=== PATIENT | female | born 1990 | race Caucasian/White ===

== ENCOUNTER 2016-09-29 03:34 | Inpatient (IN) | payer BC ==
[2016-09-29] MEDS ORDERED: Misoprostol 25 MCG (1/4 of 100 MCG) Tab ONE (08:19)
[2016-09-29] MEDS ORDERED: Sodium Chloride 0.9% 10 ML Syringe FLUSH PRN (08:28)
[2016-09-29] MEDS: Lactated Ringers 1,000 ML IV SCH ×3 (12:15→21:16)
[2016-09-29] MEDS: Oxytocin/Lactated Ringers 10 UNIT/1,000 ML BAG IV SCH (12:20)
--- NOTE | 2016-09-29 14:21 | PCM.PREANE ---
Preanesthetic Assessment - Anesthesia/Transfusion/Family Hx Anesthesia History: No Prior Anesthesia Family History of Anesthesia Reaction: No Transfusion History: No Prior Transfusion(s) - Review of Systems General: No Symptoms Pulmonary: No Symptoms Cardiovascular: No Symptoms Gastrointestinal: No Symptoms Neurological: No Symptoms Other: Reports: None - Physical Assessment O2 Sat by Pulse Oximetry: 98 Respiratory Rate: 15 Vital Signs: Last Vital Signs Temp 36.7 C 09/29/16 07:36 Pulse 113 H 09/29/16 07:36 Resp 15 09/29/16 07:36 BP 128/87 09/29/16 07:36 Pulse Ox 98 09/29/16 07:36 Height: 1.6 m Weight: 66.587 kg ASA Class: 2 Mental Status: Alert & Oriented x3 Dentition: Reports: Normal Dentition Thyro-Mental Finger Breadths: 2 Mouth Opening Finger Breadths: 3 ROM/Head Extension: Full Lungs: Clear to Auscultation, Normal Respiratory Effort Cardiovascular: Regular Rate, Regular Rhythm - Lab Values: Laboratory Last Values WBC 7.78 K/mm3 (3.98-10.04) 09/29/16 07:20 RBC 3.70 M/mm3 (3.98-5.22) L 09/29/16 07:20 Hgb 11.8 gm/L (11.2-15.7) 09/29/16 07:20 Hct 35.2 % (34.1-44.9) 09/29/16 07:20 MCV 95.1 fl (79.4-94.8) H 09/29/16 07:20 MCH 31.9 pg (25.6-32.2) 09/29/16 07:20 MCHC 33.5 g/dl (32.2-35.5) 09/29/16 07:20 RDW Std Deviation 44.5 fL (36.4-46.3) 09/29/16 07:20 Plt Count 183 K/mm3 (182-369) 09/29/16 07:20 MPV 11.5 fl (9.4-12.3) 09/29/16 07:20 Neut % (Auto) 72.9 % (34.0-71.1) H 09/29/16 07:20 Lymph % (Auto) 18.9 % (19.3-51.7) L 09/29/16 07:20 [place] % (Auto) 6.9 % (4.7-12.5) 09/29/16 07:20 Eos % (Auto) 0.9 (0.7-5.8) 09/29/16 07:20 Baso % (Auto) 0.1 % (0.1-1.2) 09/29/16 07:20 Neut # (Auto) 5.67 K/mm3 (1.56-6.13) 09/29/16 07:20 Lymph # (Auto) 1.47 K/mm3 (1.18-3.74) 09/29/16 07:20 [place] # (Auto) 0.54 K/mm3 (0.24-0.36) H 09/29/16 07:20 Eos # (Auto) 0.07 K/mm3 (0.04-0.36) 09/29/16 07:20 Baso # (Auto) 0.01 K/mm3 (0.01-0.08) 09/29/16 07:20 Blood Type O POSITIVE 09/29/16 07:20 Gel Antibody Screen Negative 09/29/16 07:20 - Allergies Allergies/Adverse Reactions: Allergies Allergy/AdvReac Type Severity Reaction Status Date / Time azithromycin [From Zithromax] AdvReac Nausea Verified 09/29/16 08:46 - Acknowledgements Anesthesia Type Planned: Epidural Pt an Appropriate Candidate for the Planned Anesthesia: Yes Alternatives and Risks of Anesthesia Discussed w Pt/Guardian: Yes Pt/Guardian Understands and Agrees with Anesthesia Plan: Yes PreAnesthesia Questionnaire - Past Health History Medical/Surgical History: Denies Medical/Surgical History - SUBSTANCE USE Smoking Status *Q: Never Smoker Recreational Drug Use History: No - HOME MEDS Home Medications: Home Meds Vit W-Ca,Fe,FA(<1 mg) [ Vitamins] 1 tab PO DAILY 09/29/16 [ History] - CURRENT (IN HOUSE) MEDS Current Meds: Current Medications Lactated Ringer's (Ringers, Lactated) 1,000 mls @ 100 mls/hr IV ASDIRECTED BEHZAD Last Admin: 09/29/16 12:15 Dose: 100 mls/hr Oxytocin/Lactated Ringer's (Pitocin In Lr 10 Units/1,000 Ml) 10 unit in 1,000 mls @ 12 mls/hr IV TITRATE BEHZAD; 2 MUNITS/MIN PRN Reason: Protocol Last Admin: 09/29/16 12:20 Dose: 2 munits/min, 12 mls/hr Sodium Chloride (Saline Flush) 10 ml FLUSH ASDIRECTED PRN PRN Reason: Keep Vein Open Discontinued Medications Misoprostol (Cytotec) Confirm Administered Dose 25 mcg .ROUTE .[facility]-MED ONE Stop: 09/29/16 08:20 Last Admin: 09/29/16 08:59 Dose: Not Given
[2016-09-29] MEDS ORDERED: diphenhydrAMINE 50 MG/ML SDV IVPUSH PRN (14:23)
[2016-09-29] MEDS ORDERED: fentaNYL 100 MCG/2 ML SDV EPIDUR ONE (14:23)
[2016-09-29] MEDS ORDERED: ePHEDrine 50 MG/ML SDV IVPUSH PRN (14:23)
[2016-09-29] MEDS ORDERED: fentaNYL 100 MCG/2 ML SDV ONE (17:31)
[2016-09-29] MEDS: Bupivacaine/fentaNYL/NS 100 ML Bag EPIDUR SCH (17:35)
--- NOTE | 2016-09-29 21:13 | PCM.SN ---
- Free Text/Narrative Note: 2054 in room epidural at T10 level bolus with .25% bupivicaine 10ml VSS out room at 2103
[2016-09-30] MEDS: Bupivacaine/fentaNYL/NS 100 ML Bag EPIDUR SCH (01:27)
--- NOTE | 2016-09-30 04:14 | PCM.LDHP ---
L&D History of Present Illness - General Date of Service: 09/29/16 Admit Problem/Dx: Patient Status Order with Admit Dx/Problem 09/29/16 08:02 Patient Status [ADT] Routine Admission Diagnosis/Problem Admission Diagnosis/Problem Source of Information: Patient History Limitations: Reports: No Limitations - History of Present Illness Introduction:: 26 year old at 40w5d by LMP c/w 20 week ultrasound here for induction of labor. PNC with myself complicated by elevated one hour and normal three hour. Doing well. Good movement. No issues. - Related Data Allergies/Adverse Reactions: Allergies Allergy/AdvReac Type Severity Reaction Status Date / Time azithromycin [From Zithromax] AdvReac Nausea Verified 09/29/16 08:46 Home Medications: Home Meds Vit W-Ca,Fe,FA(<1 mg) [ Vitamins] 1 tab PO DAILY 09/29/16 [ History] Past Medical History - Past Health History Medical/Surgical History: Denies Medical/Surgical History Social & Family History - Family History Family Medical History: Noncontributory - Tobacco Use Smoking Status *Q: Never Smoker - Caffeine Use Caffeine Use: Reports: None - Recreational Drug Use Recreational Drug Use: No H&P Review of Systems - Review of Systems: Review Of Systems: See Below General: Reports: No Symptoms HEENT: Reports: No Symptoms Pulmonary: Reports: No Symptoms Cardiovascular: Reports: No Symptoms Gastrointestinal: Reports: No Symptoms Genitourinary: Reports: No Symptoms Musculoskeletal: Reports: No Symptoms Skin: Reports: No Symptoms Psychiatric: Reports: No Symptoms Neurological: Reports: No Symptoms Hematologic/Lymphatic: Reports: No Symptoms Immunologic: Reports: No Symptoms L&D Exam - Exam Exam: See Below - Vital Signs Vital Signs: Last Vital Signs Temp 36.7 C 09/29/16 07:36 Pulse 113 H 09/29/16 07:36 Resp 15 09/29/16 14:22 BP 128/87 09/29/16 07:36 Pulse Ox 98 09/29/16 14:22 Weight: 66.587 kg - OB Specific Contraction Intensity: Mild to Moderate Movement: Active Heart Tones: Present Heart Tones per Min: 140 Presentation: Vertex - Meek Score Meek Score Cervix Position: Midposition Meek Score Consistency: Soft Meek Score Effacement: 51-70% Meek Score Dilation: 1-2 cm Meek Score 's Station: -1 ,0 Meek Score Total: 8 - Exam General: Alert, Oriented HEENT: PERRLA, Conjunctiva Clear, EACs Clear, EOMI, Hearing Intact, Mucosa Moist & [place], Nares Patent, Normal Nasal Septum, Posterior Pharynx Clear, TMs Clear Neck: Supple, Trachea Midline Lungs: Clear to Auscultation Cardiovascular: Regular Rate Genitourinary: Normal external exam, Normal bimanual exam Back Exam: Normal Inspection, Full Range of Motion Extremities: Normal Inspection Psychiatric: Alert, Normal Affect, Normal Mood - Patient Data Lab Results Last 24 hrs: Laboratory Results - last 24 hr 09/29/16 09/29/16 Range/Units 07:20 07:20 WBC 7.78 (3.98-10.04) K/mm3 RBC 3.70 L (3.98-5.22) M/mm3 Hgb 11.8 (11.2-15.7) gm/L Hct 35.2 (34.1-44.9) % MCV 95.1 H (79.4-94.8) fl MCH 31.9 (25.6-32.2) pg MCHC 33.5 (32.2-35.5) g/dl RDW Std Deviation 44.5 (36.4-46.3) fL Plt Count 183 (182-369) K/mm3 MPV 11.5 (9.4-12.3) fl Neut % (Auto) 72.9 H (34.0-71.1) % Lymph % (Auto) 18.9 L (19.3-51.7) % [place] % (Auto) 6.9 (4.7-12.5) % Eos % (Auto) 0.9 (0.7-5.8) Baso % (Auto) 0.1 (0.1-1.2) % Neut # (Auto) 5.67 (1.56-6.13) K/mm3 Lymph # (Auto) 1.47 (1.18-3.74) K/mm3 [place] # (Auto) 0.54 H (0.24-0.36) K/mm3 Eos # (Auto) 0.07 (0.04-0.36) K/mm3 Baso # (Auto) 0.01 (0.01-0.08) K/mm3 Blood Type O POSITIVE Gel Antibody Screen Negative Result Diagrams: 09/29/16 07:20 Problem List Initiated/Reviewed/Updated: Yes Orders Last 24hrs: Active Orders 24 hr Category Date Time Status Patient Status [ADT] Routine ADT 09/29/16 08:02 Active Activity as Tolerated [RC] PFP Care 09/29/16 08:28 Active Communication Order [RC] ASDIRECTED Care 09/29/16 08:28 Active Heart Tones [RC] ASDIRECTED Care 09/29/16 08:29 Active Notify Provider [RC] PRN Care 09/29/16 08:28 Active Peripheral IV Care [RC] . DIRECTED Care 09/29/16 08:29 Active Regular Diet [DIET] Diet 09/29/16 Breakfast Active Bupivacaine/fentaNYL/NS [fentaNYL/Bupivacaine/NS 2 MCG- Med 09/29/16 14:30 Active 0.125% 100 ML] 100 ml EPIDUR ASDIRECTED Lactated Ringers [Ringers, Lactated] 1,000 ml Med 09/29/16 08:30 Active IV ASDIRECTED Oxytocin/Lactated Ringers [Pitocin in LR 10 Units/1,000 Med 09/29/16 09:00 Active ML] 10 unit in 1,000 ml IV TITRATE Sodium Chloride 0.9% [Saline Flush] Med 09/29/16 08:28 Active 10 ml FLUSH ASDIRECTED PRN diphenhydrAMINE [Benadryl] Med 09/29/16 14:23 Active 25 mg IVPUSH Q6H PRN ePHEDrine [ePHEDrine Sulfate] Med 09/29/16 14:23 Active 5 mg IVPUSH ASDIRECTED PRN Electronic Heart Tones Ext w TOCO [WOMSER] Oth 09/29/16 08:28 Ordered Routine Electronic Heart Tones Internal [WOMSER] Per Unit Oth 09/29/16 08:28 Ordered Routine Peripheral IV Insertion Adult [OM.PC] Routine Oth 09/29/16 08:28 Ordered Resuscitation Status Routine Resus Stat 09/29/16 08:28 Ordered Medication Orders Diphenhydramine HCl (Benadryl) 25 mg IVPUSH Q6H PRN PRN Reason: Pruritis Ephedrine Sulfate (Ephedrine Sulfate) 5 mg IVPUSH ASDIRECTED PRN PRN Reason: Hypotension Fentanyl/Bupivacaine HCl (Fentanyl/Bupivacaine/Ns 2 Mcg-0.125% 100 Ml) 100 ml EPIDUR ASDIRECTED BEHZAD Last Admin: 09/30/16 01:27 Dose: 100 ml Admin: 09/29/16 17:35 Dose: 100 ml Lactated Ringer's (Ringers, Lactated) 1,000 mls @ 100 mls/hr IV ASDIRECTED BEHZAD Last Admin: 09/29/16 21:16 Dose: 100 mls/hr Infusion: 09/29/16 21:16 Dose: 100 mls/hr Admin: 09/29/16 18:00 Dose: 100 mls/hr Infusion: 09/29/16 18:00 Dose: 100 mls/hr Admin: 09/29/16 12:15 Dose: 100 mls/hr Oxytocin/Lactated Ringer's (Pitocin In Lr 10 Units/1,000 Ml) 10 unit in 1,000 mls @ 12 mls/hr IV TITRATE BEHZAD; 2 MUNITS/MIN PRN Reason: Protocol Last Titration: 09/30/16 01:45 Dose: 10 munits/min, 60 mls/hr Titration: 09/30/16 01:13 Dose: 8 munits/min, 48 mls/hr Titration: 09/29/16 22:30 Dose: 6 munits/min, 36 mls/hr Titration: 09/29/16 20:53 Dose: 4 munits/min, 24 mls/hr Titration: 09/29/16 19:45 Dose: 8 munits/min, 48 mls/hr Titration: 09/29/16 15:50 Dose: 6 munits/min, 36 mls/hr Titration: 09/29/16 15:10 Dose: 4 munits/min, 24 mls/hr Admin: 09/29/16 12:20 Dose: 2 munits/min, 12 mls/hr Sodium Chloride (Saline Flush) 10 ml FLUSH ASDIRECTED PRN PRN Reason: Keep Vein Open Assessment/Plan Comment:: Term induction for dates. AROM clear fluid. Having mild contractions. Start pitocin if needed. Anticipate unless otherwise indicated. Epidural if requested.
--- NOTE | 2016-09-30 04:16 | PCM.PNLD ---
Labor Progress Note - VS & Meds Vital Signs: Last Vital Signs Temp 36.7 C 09/29/16 07:36 Pulse 113 H 09/29/16 07:36 Resp 15 09/29/16 14:22 BP 128/87 09/29/16 07:36 Pulse Ox 98 09/29/16 14:22 Active Medications: Current Medications Diphenhydramine HCl (Benadryl) 25 mg IVPUSH Q6H PRN PRN Reason: Pruritis Ephedrine Sulfate (Ephedrine Sulfate) 5 mg IVPUSH ASDIRECTED PRN PRN Reason: Hypotension Fentanyl/Bupivacaine HCl (Fentanyl/Bupivacaine/Ns 2 Mcg-0.125% 100 Ml) 100 ml EPIDUR ASDIRECTED BEHZAD Last Admin: 09/30/16 01:27 Dose: 100 ml Lactated Ringer's (Ringers, Lactated) 1,000 mls @ 100 mls/hr IV ASDIRECTED BEHZAD Last Admin: 09/29/16 21:16 Dose: 100 mls/hr Oxytocin/Lactated Ringer's (Pitocin In Lr 10 Units/1,000 Ml) 10 unit in 1,000 mls @ 12 mls/hr IV TITRATE BEHZAD; 2 MUNITS/MIN PRN Reason: Protocol Last Titration: 09/30/16 01:45 Dose: 10 munits/min, 60 mls/hr Sodium Chloride (Saline Flush) 10 ml FLUSH ASDIRECTED PRN PRN Reason: Keep Vein Open Discontinued Medications Fentanyl (Sublimaze) 100 mcg EPIDUR ONETIME ONE Stop: 09/29/16 14:24 Last Admin: 09/29/16 17:35 Dose: 100 mcg Fentanyl (Sublimaze) Confirm Administered Dose 100 mcg .ROUTE .ST[facility]-MED ONE Stop: 09/29/16 17:32 Last Admin: 09/29/16 18:05 Dose: Not Given Misoprostol (Cytotec) Confirm Administered Dose 25 mcg .ROUTE .[facility]-MED ONE Stop: 09/29/16 08:20 Last Admin: 09/29/16 08:59 Dose: Not Given - Uterine Contractions Contraction Intensity: Mild to Moderate Uterine Resting Tone: Soft - Monitoring Accelerations: Present, 15x15 Decelerations: None Strip Review: Category I - Vaginal Exam Station: 0 - Labor Progress (Free Text) Labor Progress: Doing well. No issues. Contractions getting more uncomfortable.
--- NOTE | 2016-09-30 04:18 | PCM.PNLD ---
Labor Progress Note - VS & Meds Vital Signs: Last Vital Signs Temp 36.7 C 09/29/16 07:36 Pulse 113 H 09/29/16 07:36 Resp 15 09/29/16 14:22 BP 128/87 09/29/16 07:36 Pulse Ox 98 09/29/16 14:22 Active Medications: Current Medications Diphenhydramine HCl (Benadryl) 25 mg IVPUSH Q6H PRN PRN Reason: Pruritis Ephedrine Sulfate (Ephedrine Sulfate) 5 mg IVPUSH ASDIRECTED PRN PRN Reason: Hypotension Fentanyl/Bupivacaine HCl (Fentanyl/Bupivacaine/Ns 2 Mcg-0.125% 100 Ml) 100 ml EPIDUR ASDIRECTED BEHZAD Last Admin: 09/30/16 01:27 Dose: 100 ml Lactated Ringer's (Ringers, Lactated) 1,000 mls @ 100 mls/hr IV ASDIRECTED BEHZAD Last Admin: 09/29/16 21:16 Dose: 100 mls/hr Oxytocin/Lactated Ringer's (Pitocin In Lr 10 Units/1,000 Ml) 10 unit in 1,000 mls @ 12 mls/hr IV TITRATE BEHZAD; 2 MUNITS/MIN PRN Reason: Protocol Last Titration: 09/30/16 01:45 Dose: 10 munits/min, 60 mls/hr Sodium Chloride (Saline Flush) 10 ml FLUSH ASDIRECTED PRN PRN Reason: Keep Vein Open Discontinued Medications Fentanyl (Sublimaze) 100 mcg EPIDUR ONETIME ONE Stop: 09/29/16 14:24 Last Admin: 09/29/16 17:35 Dose: 100 mcg Fentanyl (Sublimaze) Confirm Administered Dose 100 mcg .ROUTE .[facility]-MED ONE Stop: 09/29/16 17:32 Last Admin: 09/29/16 18:05 Dose: Not Given Misoprostol (Cytotec) Confirm Administered Dose 25 mcg .ROUTE .ST[facility]-MED ONE Stop: 09/29/16 08:20 Last Admin: 09/29/16 08:59 Dose: Not Given - Uterine Contractions Contraction Intensity: Mild to Moderate Uterine Resting Tone: Soft - Monitoring Heart Rate (FHR) Baseline: 145 Accelerations: Present, 15x15 Decelerations: None Strip Review: Category I - Vaginal Exam Station: 0 Cervical Position: Midposition - Labor Progress (Free Text) Labor Progress: Term labor. Progressing well. Epidural desired now.
[2016-09-30] MEDS: Oxytocin/Lactated Ringers 10 UNIT/1,000 ML BAG IV SCH (04:37)
[2016-09-30] MEDS ORDERED: Benzocaine/Menthol 20%-0.5% Spray 56 GM Canister TOP PRN (04:44)
[2016-09-30] MEDS ORDERED: Witch Hazel Medicated Pads 100/Jar TOP PRN (04:44)
[2016-09-30] MEDS ORDERED: Docusate Sodium 100 MG Cap PO PRN (04:44)
[2016-09-30] MEDS ORDERED: Lanolin 100% Cream 7 GM Tube TOP PRN (04:44)
[2016-09-30] MEDS: Ibuprofen 600 MG Tab PO PRN ×3 (06:55→19:16)
--- NOTE | 2016-09-30 07:59 | PCM48HPAN ---
Post Anesthesia Note - EVALUATION WITHIN 48HRS OF ANESTHETIC Vital Signs in Normal Range: Yes Patient Participated in Evaluation: Yes Respiratory Function Stable: Yes Airway Patent: Yes Cardiovascular Function Stable: Yes Hydration Status Stable: Yes Pain Control Satisfactory: Yes Nausea and Vomiting Control Satisfactory: Yes Mental Status Recovered: Yes - COMMENTS/OBSERVATIONS Free Text/Narrative:: Patient denies any headaches, residual numbness/tingling to LE, or back pain.
[2016-09-30] MEDS ORDERED: Bupivacaine 0.25% 10 ML SDV ONE (22:22)
[2016-10-01] MEDS: Ibuprofen 600 MG Tab PO PRN ×2 (08:26→18:15)
[2016-10-01] MEDS ORDERED: Measles, Mumps & Rubella Vaccine 0.5 ML SDV SUBCUT ONE (16:04)
[2016-10-02 04:41] VITALS: BP 104/78
[2016-10-02] MEDS: Ibuprofen 600 MG Tab PO PRN (08:09)
--- NOTE | 2016-10-02 09:23 | PCM.PNPP ---
- General Info Date of Service: 10/01/16 Functional Status: Reports: Pain Controlled - Review of Systems General: Reports: No Symptoms HEENT: Reports: No Symptoms Pulmonary: Reports: No Symptoms Cardiovascular: Reports: No Symptoms Gastrointestinal: Reports: No Symptoms Genitourinary: Reports: No Symptoms Musculoskeletal: Reports: No Symptoms Skin: Reports: No Symptoms Neurological: Reports: No Symptoms Psychiatric: Reports: No Symptoms - General Info Date of Service: 10/01/16 - Patient Data Vital Signs - Most Recent: Last Vital Signs Temp 37.0 C 10/02/16 04:30 Pulse 71 10/02/16 04:30 Resp 14 10/02/16 04:30 BP 104/78 10/02/16 04:30 Pulse Ox 96 10/02/16 04:30 Weight - Most Recent: 66.587 kg I&O - Last 24 Hours: Intake & Output 10/01/16 10/02/16 10/02/16 22:59 06:59 14:59 Intake Total 320 Balance 320 Med Orders - Current: Current Medications Benzocaine/Menthol (Dermoplast Pain Relief [place]) 0 gm TOP ASDIRECTED PRN PRN Reason: Perineal Comfort Measure Last Admin: 09/30/16 05:05 Dose: 56 gm Docusate Sodium (Colace) 100 mg PO BID PRN PRN Reason: Constipation Last Admin: 10/01/16 08:28 Dose: 100 mg Emollient Ointment (Lansinoh Hpa) 0 gm TOP ASDIRECTED PRN PRN Reason: Sore Nipples Ibuprofen (Motrin) 600 mg PO Q6H PRN PRN Reason: Mild pain or fever Last Admin: 10/02/16 08:09 Dose: 600 mg Witch Merlene (Tucks) 1 pad TOP ASDIRECTED PRN PRN Reason: Hemorrhoid pain Last Admin: 09/30/16 05:05 Dose: 1 pad Discontinued Medications Bupivacaine HCl (Sensorcaine-Mpf 0.25%) 20 ml .ROUTE .[facility]-MED ONE Stop: 09/30/16 22:23 Diphenhydramine HCl (Benadryl) 25 mg IVPUSH Q6H PRN PRN Reason: Pruritis Ephedrine Sulfate (Ephedrine Sulfate) 5 mg IVPUSH ASDIRECTED PRN PRN Reason: Hypotension Fentanyl (Sublimaze) 100 mcg EPIDUR ONETIME ONE Stop: 09/29/16 14:24 Last Admin: 09/29/16 17:35 Dose: 100 mcg Fentanyl (Sublimaze) Confirm Administered Dose 100 mcg .ROUTE .[facility]-MED ONE Stop: 09/29/16 17:32 Last Admin: 09/29/16 18:05 Dose: Not Given Fentanyl/Bupivacaine HCl (Fentanyl/Bupivacaine/Ns 2 Mcg-0.125% 100 Ml) 100 ml EPIDUR ASDIRECTED BEHZAD Last Admin: 09/30/16 01:27 Dose: 100 ml Lactated Ringer's (Ringers, Lactated) 1,000 mls @ 100 mls/hr IV ASDIRECTED BEHZAD Last Admin: 09/29/16 21:16 Dose: 100 mls/hr Oxytocin/Lactated Ringer's (Pitocin In Lr 10 Units/1,000 Ml) 10 unit in 1,000 mls @ 12 mls/hr IV TITRATE BEHZAD; 2 MUNITS/MIN PRN Reason: Protocol Last Admin: 09/30/16 04:37 Dose: 10 munits/min, 500 mls/hr Measles/Mumps/Rubella Vaccine Live (M-M-R Ii Vaccine) 0.5 ml SUBCUT .ONCE ONE Stop: 10/01/16 16:05 Last Admin: 10/01/16 16:20 Dose: 0.5 ml Misoprostol (Cytotec) Confirm Administered Dose 25 mcg .ROUTE .[facility]-MED ONE Stop: 09/29/16 08:20 Last Admin: 09/29/16 08:59 Dose: Not Given Sodium Chloride (Saline Flush) 10 ml FLUSH ASDIRECTED PRN PRN Reason: Keep Vein Open - Infant Interaction Disposition, : [place] at Bedside Support Person: - Recovery Exam Fundal Tone: Firm Fundal Level: 1 Fingerbreadths Below Umbilicus Fundal Placement: Midline Lochia Amount: Small Lochia Color: Rubra/Red Perineum Description: Intact, Minimal Bruising/Swelling Other Perinuem Description: 2nd degree with repair Episiotomy/Laceration: Approximated Bladder Status: Voiding Urinary Elimination: Voided - Exam General: Alert, Oriented HEENT: Pupils Equal Neck: Supple Lungs: Clear to Auscultation, Normal Respiratory Effort Cardiovascular: Regular Rate, Regular Rhythm GI/Abdominal Exam: Normal Bowel Sounds, Soft, Non-Tender, No Organomegaly, No Distention, No Abnormal Bruit, No Mass, Pelvis Stable Extremities: Normal Inspection, Normal Range of Motion, Non-Tender, No Pedal Edema, Normal Capillary Refill Skin: Warm, Dry, Intact Wound/Incisions: Healing Well Neurological: No New Focal Deficit Psy/Mental Status: Alert, Normal Affect, Normal Mood - Problem List Review Problem List Initiated/Reviewed/Updated: Yes - Assessment Assessment:: Doing well. Minimal bleeding. Pain controlled. Probable discharge tomorrow. Some struggles with nursing. - Plan Plan:: Probable discharge tomorrow.
== END 2016-10-02 11:35 | disposition home or self-care (01) | DRG 560 ==
LOC: JD.OB 03:34 → OBSVTOIN 09-30 03:34 → INTOOBSV 09-30 03:51 → OBSVTOIN 09-30 03:51
PROVIDERS: ADMIT Obstetrics & Gynecology; ATTEND Obstetrics & Gynecology
PROC: 10E0XZZ Delivery of Products of Conception, External Approach (ICD-10-PCS; principal; 2016-09-30)
PROC: 0KQM0ZZ Repair Perineum Muscle, Open Approach (ICD-10-PCS; 2016-09-30)
PROC: 3E033VJ Introduction of Other Hormone into Peripheral Vein, Percutaneous Approach (ICD-10-PCS; 2016-09-30)
PROC: 10907ZC Drainage of Amniotic Fluid, Therapeutic from Products of Conception, Via Natural or Artificial Opening (ICD-10-PCS; 2016-09-30)
PROC: 00HU33Z Insertion of Infusion Device into Spinal Canal, Percutaneous Approach (ICD-10-PCS; 2016-09-30)
PROC: 3E0R3CZ (ICD-10-PCS; 2016-09-30)
DX: O48.0 Post-term pregnancy (principal); O70.1 Second degree perineal laceration during delivery; O69.81X0 Labor and delivery complicated by cord around neck, without compression, not applicable or unspecified; Z3A.41 41 weeks gestation of pregnancy; Z37.0 Single live birth; Z88.1 Allergy status to other antibiotic agents
CPT/HCPCS: 36415; 85025; 86850; 86900; 86901; 90707; A9270-GY; J2590; J3010; J7120

== ENCOUNTER 2021-11-14 08:26 | Emergency (ER) | payer BC ==
[2021-11-14 08:50] VITALS: BP 112/85; PULSE 73
[2021-11-14] MEDS ORDERED: Ondansetron 4 MG/2 ML SDV IVPUSH ONE (08:55)
[2021-11-14] MEDS ORDERED: Sodium Chloride 0.9% 1,000 ML IV SCH (09:00)
== END 2021-11-14 12:10 | disposition home or self-care (01) ==
LOC: JD.ED 08:26
DX: O03.4 Incomplete spontaneous abortion without complication (principal); N83.201 Unspecified ovarian cyst, right side; Z88.1 Allergy status to other antibiotic agents
CPT/HCPCS: 36415; 76817; 84702; 85025; 85610; 85730; 96361; 96374; 99284; J2405; J7030